=== PATIENT | male | born 1955 | race Caucasian/White ===

== ENCOUNTER 2021-02-18 00:11 | Inpatient (IN) ==
[2021-02-18] MEDS ORDERED: INSULIN GLARGINE 100 UNIT/ML SUBCUT ONE (01:40)
[2021-02-18 01:56] LABS: Basophils # 0.1 10*3/uL (0.0-0.2); Basophils % 0.4 % (0.0-0.8); Eosinophils # 0.2 10*3/uL (0.0-0.87); Eosinophils % 1.4 % (0.00-10.9); Hematocrit 37.6 VOL% (42.0-52.0); Hemoglobin 11.3 GM/DL (14.0-18.0); Immature Granulocytes % 2.1 %; Immature Granulocytes Absolute 0.27 #; Lymphocytes # 3.4 10*3/uL (1.4-4.0); Lymphocytes % 25.8 % (21.2-54.2); Mean Corpuscular HGB Conc 30.1 GM/DL (32-36); Mean Corpuscular Volume 97.4 FL (87-102); Mean Platelet Volume 10.3 FL (9.6-12.0); Monocytes % 8.7 % (1.7-12.7); Neutrophils % 61.6 % (38.7-73.9); Platelet Count 288 T/CUMM (130-400); Red Blood Count 3.86 MC/CUMM (3.8-5.5); Red Cell Distribution Width 17.2 % (9.3-17.3)
[2021-02-18 02:08] LABS: INR 1.6; PT Patient Result 16.8 SECS (10.5-12.0)
[2021-02-18 02:12] LABS: Albumin 3.1 G/DL (3.4-5.0); Bilirubin,Total 0.8 MG/DL (0.20-1.00); Calcium 8.4 MG/DL (8.5-10.1); Osmolality,Calculated 284.1 MOS/KG (273-304); Potassium 3.3 MMOL/L (3.5-5.1); Total Protein 6.3 G/DL (6.4-8.2)
[2021-02-18] MEDS ORDERED: POTASSIUM CHLORIDE 20 MEQ TABLET PO STA (02:14)
[2021-02-18] MEDS ORDERED: DILTIAZEM 50 MG/10 ML VIAL IV STA (02:28)
[2021-02-18] MEDS ORDERED: FUROSEMIDE 20 MG/2 ML VIAL IV STA (02:29)
[2021-02-18] MEDS ORDERED: PIPERACILLIN/TAZOBACTAM 3,375 MG in SODIUM CHLORIDE 0.9% 100 ML IV STA (02:30)
[2021-02-18] MEDS ORDERED: FUROSEMIDE 40 MG/4 ML VIAL ONE (02:54)
[2021-02-18] MEDS ORDERED: MAGNESIUM SULF RIDER 4 GM/100 ML PREMIX IV PRN (02:54)
[2021-02-18] MEDS ORDERED: MAGNESIUM SULF RIDER 2 GM/50 ML PREMIX IV PRN (02:54)
[2021-02-18] MEDS ORDERED: LOPERAMIDE 2 MG CAPSULE PO PRN (02:59)
[2021-02-18] MEDS ORDERED: MAGNESIUM HYDROXIDE SUSP 30 ML UDCUP PO PRN (02:59)
[2021-02-18] MEDS ORDERED: ALUMINUM/MAGNES/SIMETH MAX STR 30 ML UDCUP PO PRN (02:59)
[2021-02-18] MEDS ORDERED: GLUCAGON 1 MG VIAL IM PRN (04:43)
[2021-02-18] MEDS ORDERED: DEXTROSE 50% 25 GM/50 ML VIAL IV PRN (04:43)
[2021-02-18] MEDS: MOMETASONE/FORMOTEROL 200-5 INHALER 8.8 GM INH SCH ×2 (09:24→20:42)
[2021-02-18] MEDS: FUROSEMIDE 40 MG/4 ML VIAL IV SCH ×2 (09:25→15:35)
[2021-02-18] MEDS: OXcarbazepine 300 MG TABLET PO SCH (09:25)
[2021-02-18] MEDS: RIVAROXABAN 15 MG TABLET PO SCH (09:26)
[2021-02-18] MEDS: SERTRALINE 25 MG TABLET PO SCH (09:27)
[2021-02-18] MEDS: METOPROLOL TARTRATE 25 MG TABLET PO SCH ×2 (09:35→20:42)
[2021-02-18] MEDS: VANCOMYCIN INJ 1,500 MG in SODIUM CHLORIDE 0.9% 500 ML IV SCH ×2 (10:14→20:45)
[2021-02-18] MEDS: INSULIN REGULAR 100 UNIT/ML SUBCUT SCH ×4 (10:58→20:42)
[2021-02-18] MEDS: PIPERACILLIN/TAZOBACTAM 3,375 MG in SODIUM CHLORIDE 0.9% 100 ML IV SCH ×2 (14:27→23:48)
[2021-02-18] MEDS: metOLazone 2.5 MG TABLET PO SCH (17:32)
[2021-02-19 05:05] LABS: Basophils # 0.1 10*3/uL (0.0-0.2); Basophils % 0.6 % (0.0-0.8); Eosinophils # 0.2 10*3/uL (0.0-0.87); Eosinophils % 1.3 % (0.00-10.9); Immature Granulocytes % 2.3 %; Immature Granulocytes Absolute 0.29 #; Lymphocytes # 3.4 10*3/uL (1.4-4.0); Lymphocytes % 26.5 % (21.2-54.2); Mean Corpuscular HGB Conc 30.6 GM/DL (32-36); Mean Platelet Volume 10.3 FL (9.6-12.0); Monocytes % 8.6 % (1.7-12.7); Neutrophils % 60.7 % (38.7-73.9); Platelet Count 282 T/CUMM (130-400); Red Blood Count 3.79 MC/CUMM (3.8-5.5); Red Cell Distribution Width 17.2 % (9.3-17.3); White Blood Count 12.8 T/CUMM (4-12)
[2021-02-19 05:28] LABS: Albumin 2.9 G/DL (3.4-5.0); Bilirubin,Total 1.6 MG/DL (0.20-1.00); Calcium 9.2 MG/DL (8.5-10.1); Osmolality,Calculated 278.8 MOS/KG (273-304); Potassium 3.5 MMOL/L (3.5-5.1); Total Protein 6.4 G/DL (6.4-8.2)
[2021-02-19] MEDS: PIPERACILLIN/TAZOBACTAM 3,375 MG in SODIUM CHLORIDE 0.9% 100 ML IV SCH ×3 (06:21→23:14)
[2021-02-19] MEDS ORDERED: POTASSIUM CHLORIDE 20 MEQ TABLET PO PRN (08:04)
[2021-02-19 08:13] LABS: Eosinophils 2 % (0-10); Hypochromasia Slight; Lymphocytes 30 % (20-55); Microcytosis Slight; Platelet Estimate Adequate; Segmented Neutrophils 58 % (50-85); Total Cells Counted 100
[2021-02-19] MEDS: OXcarbazepine 300 MG TABLET PO SCH (08:45)
[2021-02-19] MEDS: SERTRALINE 25 MG TABLET PO SCH (08:45)
[2021-02-19] MEDS: metOLazone 2.5 MG TABLET PO SCH (08:46)
[2021-02-19] MEDS: RIVAROXABAN 15 MG TABLET PO SCH (08:46)
[2021-02-19] MEDS: FUROSEMIDE 40 MG/4 ML VIAL IV SCH ×2 (08:51→17:19)
[2021-02-19] MEDS: MOMETASONE/FORMOTEROL 200-5 INHALER 8.8 GM INH SCH ×2 (09:09→20:46)
[2021-02-19] MEDS ORDERED: DIGOXIN 0.5 MG/2 ML AMP IV ONE (09:50)
[2021-02-19] MEDS: VANCOMYCIN INJ 1,500 MG in SODIUM CHLORIDE 0.9% 500 ML IV SCH ×2 (10:40→20:46)
[2021-02-19] MEDS: ONDANSETRON 4 MG/2 ML VIAL IV PRN (11:24)
[2021-02-19] MEDS ORDERED: METOPROLOL TARTRATE 5 MG/5 ML VIAL IV ONE ×2 (12:11→12:13)
[2021-02-19] MEDS: INSULIN REGULAR 100 UNIT/ML SUBCUT SCH ×4 (12:20→20:47)
[2021-02-19] MEDS: DESITIN 4OZ/NYSTATIN 15 GRAM MIXTURE PASTE TOP SCH ×2 (12:56→20:46)
[2021-02-19] MEDS: methylPREDNISolone SOD SUC 40 MG/1 ML VIAL IV SCH (12:56)
[2021-02-19] MEDS: METOPROLOL TARTRATE 25 MG TABLET PO SCH (14:38)
[2021-02-19] MEDS ORDERED: METOPROLOL TARTRATE 25 MG TABLET PO ONE (14:45)
[2021-02-19] MEDS: METOPROLOL SUCCINATE XL 25 MG TABLET PO SCH (20:47)
[2021-02-19] MEDS ORDERED: METOPROLOL TARTRATE 25 MG TABLET PO SCH (21:00)
[2021-02-20] MEDS: methylPREDNISolone SOD SUC 40 MG/1 ML VIAL IV SCH ×2 (00:30→12:28)
[2021-02-20 05:51] LABS: Basophils # 0.1 10*3/uL (0.0-0.2); Basophils % 0.3 % (0.0-0.8); Hematocrit 36.8 VOL% (42.0-52.0); Hemoglobin 11.2 GM/DL (14.0-18.0); Immature Granulocytes % 2.1 %; Immature Granulocytes Absolute 0.32 #; Lymphocytes # 1.9 10*3/uL (1.4-4.0); Lymphocytes % 12.4 % (21.2-54.2); Mean Corpuscular HGB Conc 30.4 GM/DL (32-36); Mean Corpuscular Volume 96.3 FL (87-102); Mean Platelet Volume 10.5 FL (9.6-12.0); Monocytes % 2.1 % (1.7-12.7); Neutrophils % 83.1 % (38.7-73.9); Platelet Count 298 T/CUMM (130-400); Red Blood Count 3.82 MC/CUMM (3.8-5.5); Red Cell Distribution Width 16.7 % (9.3-17.3); White Blood Count 15.3 T/CUMM (4-12)
[2021-02-20] MEDS: PIPERACILLIN/TAZOBACTAM 3,375 MG in SODIUM CHLORIDE 0.9% 100 ML IV SCH ×2 (06:16→14:38)
[2021-02-20 06:26] LABS: Calcium 9.1 MG/DL (8.5-10.1); Osmolality,Calculated 285.5 MOS/KG (273-304); Potassium 3.9 MMOL/L (3.5-5.1)
[2021-02-20] MEDS: INSULIN REGULAR 100 UNIT/ML SUBCUT SCH ×4 (09:32→20:58)
[2021-02-20] MEDS: FUROSEMIDE 40 MG/4 ML VIAL IV SCH ×2 (09:33→17:04)
[2021-02-20] MEDS: SERTRALINE 25 MG TABLET PO SCH (09:33)
[2021-02-20] MEDS: metOLazone 2.5 MG TABLET PO SCH (09:33)
[2021-02-20] MEDS: RIVAROXABAN 15 MG TABLET PO SCH (09:34)
[2021-02-20] MEDS: METOPROLOL SUCCINATE XL 25 MG TABLET PO SCH (09:34)
[2021-02-20] MEDS: OXcarbazepine 300 MG TABLET PO SCH (09:35)
[2021-02-20] MEDS: DESITIN 4OZ/NYSTATIN 15 GRAM MIXTURE PASTE TOP SCH ×2 (09:39→20:58)
[2021-02-20] MEDS: MOMETASONE/FORMOTEROL 200-5 INHALER 8.8 GM INH SCH ×2 (09:39→20:57)
[2021-02-20] MEDS: VANCOMYCIN INJ 1,500 MG in SODIUM CHLORIDE 0.9% 500 ML IV SCH (09:44)
[2021-02-20] MEDS: DIGOXIN 0.25 MG TABLET PO SCH (12:27)
[2021-02-20] MEDS ORDERED: METOPROLOL SUCCINATE XL 25 MG TABLET PO ONE (12:34)
[2021-02-20] MEDS: DILTIAZEM INJ 100 MG in SODIUM CHLORIDE 0.9% 100 ML IV SCH ×2 (20:08→20:09)
[2021-02-20] MEDS: METOPROLOL SUCCINATE XL 50 MG TABLET PO SCH (20:57)
[2021-02-21] MEDS: PIPERACILLIN/TAZOBACTAM 3,375 MG in SODIUM CHLORIDE 0.9% 100 ML IV SCH ×4 (00:19→22:53)
[2021-02-21] MEDS: methylPREDNISolone SOD SUC 40 MG/1 ML VIAL IV SCH ×2 (00:47→11:43)
[2021-02-21] MEDS: ZALEPLON 5 MG CAPSULE PO PRN ×2 (00:58→20:36)
[2021-02-21] MEDS: ONDANSETRON 4 MG/2 ML VIAL IV PRN ×2 (00:59→20:38)
[2021-02-21 04:47] LABS: Basophils # 0.1 10*3/uL (0.0-0.2); Basophils % 0.3 % (0.0-0.8); Hematocrit 37.9 VOL% (42.0-52.0); Hemoglobin 11.6 GM/DL (14.0-18.0); Immature Granulocytes Absolute 0.48 #; Lymphocytes # 2.9 10*3/uL (1.4-4.0); Lymphocytes % 12.3 % (21.2-54.2); Mean Corpuscular HGB Conc 30.6 GM/DL (32-36); Mean Corpuscular Volume 97.2 FL (87-102); Mean Platelet Volume 10.2 FL (9.6-12.0); Monocytes % 3.6 % (1.7-12.7); NRBC # 0.02 10*3/uL; Neutrophils % 81.8 % (38.7-73.9); Platelet Count 324 T/CUMM (130-400); Red Cell Distribution Width 16.8 % (9.3-17.3); White Blood Count 23.5 T/CUMM (4-12)
[2021-02-21 05:25] LABS: Calcium 9.2 MG/DL (8.5-10.1); Osmolality,Calculated 285.5 MOS/KG (273-304); Potassium 4.1 MMOL/L (3.5-5.1)
[2021-02-21] MEDS: INSULIN REGULAR 100 UNIT/ML SUBCUT SCH ×4 (09:19→20:35)
[2021-02-21] MEDS: FUROSEMIDE 40 MG/4 ML VIAL IV SCH ×2 (09:19→17:04)
[2021-02-21] MEDS: RIVAROXABAN 15 MG TABLET PO SCH (09:20)
[2021-02-21] MEDS: SERTRALINE 25 MG TABLET PO SCH (09:20)
[2021-02-21] MEDS: OXcarbazepine 300 MG TABLET PO SCH (09:20)
[2021-02-21] MEDS: METOPROLOL SUCCINATE XL 50 MG TABLET PO SCH ×2 (09:20→20:36)
[2021-02-21] MEDS: MOMETASONE/FORMOTEROL 200-5 INHALER 8.8 GM INH SCH ×2 (09:21→20:35)
[2021-02-21] MEDS: metOLazone 2.5 MG TABLET PO SCH (09:21)
[2021-02-21] MEDS: DESITIN 4OZ/NYSTATIN 15 GRAM MIXTURE PASTE TOP SCH ×2 (09:21→20:35)
[2021-02-21] MEDS: DIGOXIN 0.25 MG TABLET PO SCH (13:41)
[2021-02-22 05:20] LABS: Basophils # 0.1 10*3/uL (0.0-0.2); Basophils % 0.3 % (0.0-0.8); Hematocrit 38.1 VOL% (42.0-52.0); Hemoglobin 11.6 GM/DL (14.0-18.0); Immature Granulocytes % 3.3 %; Immature Granulocytes Absolute 0.89 #; Lymphocytes # 3.8 10*3/uL (1.4-4.0); Lymphocytes % 14.3 % (21.2-54.2); Mean Corpuscular HGB Conc 30.4 GM/DL (32-36); Mean Corpuscular Volume 95.5 FL (87-102); Mean Platelet Volume 10.4 FL (9.6-12.0); Monocytes % 5.1 % (1.7-12.7); NRBC # 0.03 10*3/uL; Platelet Count 322 T/CUMM (130-400); Red Blood Count 3.99 MC/CUMM (3.8-5.5); Red Cell Distribution Width 16.6 % (9.3-17.3); White Blood Count 26.7 T/CUMM (4-12)
[2021-02-22 05:49] LABS: Hypochromasia 1+; Lymphocytes 20 % (20-55); Microcytosis 1+; Osmolality,Calculated 285.8 MOS/KG (273-304); Platelet Estimate Adequate; Potassium 3.6 MMOL/L (3.5-5.1); Segmented Neutrophils 72 % (50-85); Total Cells Counted 100
[2021-02-22] MEDS: PIPERACILLIN/TAZOBACTAM 3,375 MG in SODIUM CHLORIDE 0.9% 100 ML IV SCH ×2 (06:35→13:56)
[2021-02-22] MEDS: OXcarbazepine 300 MG TABLET PO SCH (09:35)
[2021-02-22] MEDS: RIVAROXABAN 15 MG TABLET PO SCH (09:35)
[2021-02-22] MEDS: SERTRALINE 25 MG TABLET PO SCH (09:37)
[2021-02-22] MEDS: METOPROLOL SUCCINATE XL 50 MG TABLET PO SCH ×2 (09:37→21:05)
[2021-02-22] MEDS: metOLazone 2.5 MG TABLET PO SCH (09:37)
[2021-02-22] MEDS: DESITIN 4OZ/NYSTATIN 15 GRAM MIXTURE PASTE TOP SCH ×2 (09:42→21:12)
[2021-02-22] MEDS: MOMETASONE/FORMOTEROL 200-5 INHALER 8.8 GM INH SCH ×2 (09:42→21:05)
[2021-02-22] MEDS: methylPREDNISolone SOD SUC 40 MG/1 ML VIAL IV SCH (09:44)
[2021-02-22] MEDS: INSULIN REGULAR 100 UNIT/ML SUBCUT SCH ×4 (09:44→21:05)
[2021-02-22] MEDS: FUROSEMIDE 40 MG/4 ML VIAL IV SCH (09:46)
[2021-02-22] MEDS: DIGOXIN 0.25 MG TABLET PO SCH (13:56)
[2021-02-22] MEDS ORDERED: SPIRONOLACTONE 25 MG TABLET PO ONE (14:51)
[2021-02-22] MEDS: MEROPENEM 500 MG in SODIUM CHLORIDE 0.9% 100 ML IV SCH ×2 (16:59→23:52)
[2021-02-23] MEDS: MEROPENEM 500 MG in SODIUM CHLORIDE 0.9% 100 ML IV SCH ×4 (05:39→22:31)
[2021-02-23 05:45] LABS: Basophils % 0.1 % (0.0-0.8); Eosinophils % 0.1 % (0.00-10.9); Hematocrit 42.6 VOL% (42.0-52.0); Hemoglobin 13.4 GM/DL (14.0-18.0); Immature Granulocytes % 4.2 %; Immature Granulocytes Absolute 1.16 #; Lymphocytes # 4.9 10*3/uL (1.4-4.0); Lymphocytes % 17.8 % (21.2-54.2); Mean Corpuscular HGB Conc 31.5 GM/DL (32-36); Mean Platelet Volume 10.1 FL (9.6-12.0); Monocytes % 7.2 % (1.7-12.7); NRBC # 0.02 10*3/uL; Neutrophils % 70.6 % (38.7-73.9); Platelet Count 349 T/CUMM (130-400); Red Blood Count 4.53 MC/CUMM (3.8-5.5); Red Cell Distribution Width 16.4 % (9.3-17.3); White Blood Count 27.5 T/CUMM (4-12)
[2021-02-23 05:58] LABS: Albumin 2.7 G/DL (3.4-5.0); Bilirubin,Total 0.7 MG/DL (0.20-1.00); Calcium 9.1 MG/DL (8.5-10.1); Osmolality,Calculated 282.7 MOS/KG (273-304); Potassium 4.5 MMOL/L (3.5-5.1); Total Protein 6.8 G/DL (6.4-8.2)
[2021-02-23 06:52] LABS: Lymphocytes 19 % (20-55); Platelet Estimate Normal; Segmented Neutrophils 75 % (50-85); Total Cells Counted 100
[2021-02-23] MEDS: metOLazone 2.5 MG TABLET PO SCH (08:55)
[2021-02-23] MEDS: METOPROLOL SUCCINATE XL 50 MG TABLET PO SCH ×2 (08:55→20:16)
[2021-02-23] MEDS: MOMETASONE/FORMOTEROL 200-5 INHALER 8.8 GM INH SCH ×2 (08:55→20:17)
[2021-02-23] MEDS: FUROSEMIDE 40 MG TABLET PO SCH (08:55)
[2021-02-23] MEDS: SERTRALINE 25 MG TABLET PO SCH (08:56)
[2021-02-23] MEDS: OXcarbazepine 300 MG TABLET PO SCH (08:56)
[2021-02-23] MEDS: RIVAROXABAN 15 MG TABLET PO SCH (08:56)
[2021-02-23] MEDS: INSULIN REGULAR 100 UNIT/ML SUBCUT SCH ×4 (08:57→20:36)
[2021-02-23] MEDS: methylPREDNISolone SOD SUC 40 MG/1 ML VIAL IV SCH (08:57)
[2021-02-23] MEDS: SPIRONOLACTONE 25 MG TABLET PO SCH (08:57)
[2021-02-23] MEDS: DIGOXIN 0.25 MG TABLET PO SCH (12:05)
[2021-02-23] MEDS: DESITIN 4OZ/NYSTATIN 15 GRAM MIXTURE PASTE TOP SCH ×2 (17:23→20:17)
[2021-02-23] MEDS: ZALEPLON 5 MG CAPSULE PO PRN (20:15)
[2021-02-24 04:35] LABS: Basophils % 0.1 % (0.0-0.8); Eosinophils % 0.1 % (0.00-10.9); Hematocrit 44.3 VOL% (42.0-52.0); Hemoglobin 13.7 GM/DL (14.0-18.0); Immature Granulocytes % 6.1 %; Immature Granulocytes Absolute 1.67 #; Lymphocytes # 4.8 10*3/uL (1.4-4.0); Lymphocytes % 17.6 % (21.2-54.2); Mean Corpuscular HGB Conc 30.9 GM/DL (32-36); Mean Corpuscular Volume 92.7 FL (87-102); Mean Platelet Volume 9.9 FL (9.6-12.0); Monocytes % 6.4 % (1.7-12.7); NRBC # 0.04 10*3/uL; Neutrophils % 69.7 % (38.7-73.9); Platelet Count 363 T/CUMM (130-400); Red Blood Count 4.78 MC/CUMM (3.8-5.5); Red Cell Distribution Width 16.4 % (9.3-17.3); White Blood Count 27.3 T/CUMM (4-12)
[2021-02-24] MEDS: MEROPENEM 500 MG in SODIUM CHLORIDE 0.9% 100 ML IV SCH ×4 (04:36→23:04)
[2021-02-24 05:05] LABS: Albumin 2.9 G/DL (3.4-5.0); Bilirubin,Total 0.5 MG/DL (0.20-1.00); Calcium 9.1 MG/DL (8.5-10.1); Osmolality,Calculated 283.7 MOS/KG (273-304); Potassium 4.2 MMOL/L (3.5-5.1); Total Protein 6.6 G/DL (6.4-8.2)
[2021-02-24 05:14] LABS: Calcium 9.2 MG/DL (8.5-10.1); Osmolality,Calculated 287.4 MOS/KG (273-304); Potassium 4.2 MMOL/L (3.5-5.1)
[2021-02-24 06:38] LABS: Anisocytosis 1+; Atypical Lymphocytes Few; Band Neutrophils 3 % (0-10); Burr Cells Few; Lymphocytes 20 % (20-55); Macrocytosis 1+; Myelocytes 3 %; Nucleated Red Blood Cells 1 (0-5); Platelet Estimate Normal; Segmented Neutrophils 65 % (50-85); Tear Drop Cells Few; Total Cells Counted 100
[2021-02-24] MEDS: INSULIN REGULAR 100 UNIT/ML SUBCUT SCH ×4 (07:54→21:59)
[2021-02-24] MEDS: MOMETASONE/FORMOTEROL 200-5 INHALER 8.8 GM INH SCH ×2 (08:29→22:00)
[2021-02-24] MEDS: SPIRONOLACTONE 25 MG TABLET PO SCH (08:30)
[2021-02-24] MEDS: RIVAROXABAN 15 MG TABLET PO SCH (08:30)
[2021-02-24] MEDS: FUROSEMIDE 40 MG TABLET PO SCH (08:30)
[2021-02-24] MEDS: METOPROLOL SUCCINATE XL 50 MG TABLET PO SCH ×2 (08:30→22:00)
[2021-02-24] MEDS: OXcarbazepine 300 MG TABLET PO SCH (08:31)
[2021-02-24] MEDS: PANTOPRAZOLE 40 MG TABLET PO SCH (08:31)
[2021-02-24] MEDS: SERTRALINE 25 MG TABLET PO SCH (08:31)
[2021-02-24] MEDS: methylPREDNISolone SOD SUC 40 MG/1 ML VIAL IV SCH (08:32)
[2021-02-24] MEDS: DESITIN 4OZ/NYSTATIN 15 GRAM MIXTURE PASTE TOP SCH ×2 (08:40→22:06)
[2021-02-24] MEDS: DIGOXIN 0.25 MG TABLET PO SCH (14:47)
[2021-02-25] MEDS: MEROPENEM 500 MG in SODIUM CHLORIDE 0.9% 100 ML IV SCH ×4 (04:00→23:21)
[2021-02-25 05:47] LABS: Basophils % 0.1 % (0.0-0.8); Eosinophils % 0.1 % (0.00-10.9); Hematocrit 45.3 VOL% (42.0-52.0); Hemoglobin 14.1 GM/DL (14.0-18.0); Immature Granulocytes % 7.7 %; Lymphocytes # 5.4 10*3/uL (1.4-4.0); Lymphocytes % 18.2 % (21.2-54.2); Mean Corpuscular HGB Conc 31.1 GM/DL (32-36); Mean Corpuscular Volume 94.6 FL (87-102); Mean Platelet Volume 10.2 FL (9.6-12.0); NRBC # 0.05 10*3/uL; Neutrophils % 66.9 % (38.7-73.9); Platelet Count 358 T/CUMM (130-400); Red Blood Count 4.79 MC/CUMM (3.8-5.5); Red Cell Distribution Width 16.3 % (9.3-17.3); White Blood Count 29.9 T/CUMM (4-12)
[2021-02-25 05:59] LABS: Lymphocytes 13 % (20-55); Segmented Neutrophils 83 % (50-85); Total Cells Counted 100
[2021-02-25 06:00] LABS: Hypochromasia 1+; Microcytosis 1+; Platelet Estimate Adequate
[2021-02-25 06:08] LABS: Calcium 9.2 MG/DL (8.5-10.1); Osmolality,Calculated 288.4 MOS/KG (273-304); Potassium 4.4 MMOL/L (3.5-5.1)
[2021-02-25] MEDS: INSULIN REGULAR 100 UNIT/ML SUBCUT SCH ×4 (09:09→20:41)
[2021-02-25] MEDS: SPIRONOLACTONE 25 MG TABLET PO SCH (09:10)
[2021-02-25] MEDS: FUROSEMIDE 40 MG TABLET PO SCH (09:10)
[2021-02-25] MEDS: METOPROLOL SUCCINATE XL 50 MG TABLET PO SCH ×2 (09:10→20:42)
[2021-02-25] MEDS: OXcarbazepine 300 MG TABLET PO SCH (09:10)
[2021-02-25] MEDS: methylPREDNISolone SOD SUC 40 MG/1 ML VIAL IV SCH (09:10)
[2021-02-25] MEDS: RIVAROXABAN 15 MG TABLET PO SCH (09:10)
[2021-02-25] MEDS: SERTRALINE 25 MG TABLET PO SCH (09:10)
[2021-02-25] MEDS: PANTOPRAZOLE 40 MG TABLET PO SCH (09:11)
[2021-02-25] MEDS: DESITIN 4OZ/NYSTATIN 15 GRAM MIXTURE PASTE TOP SCH ×2 (09:11→20:41)
[2021-02-25] MEDS: MOMETASONE/FORMOTEROL 200-5 INHALER 8.8 GM INH SCH ×2 (09:11→20:41)
[2021-02-25] MEDS ORDERED: TUBERCULIN SKIN TEST 0.1 ML SYRINGE INTRADERM ONE (11:14)
[2021-02-25] MEDS: DIGOXIN 0.25 MG TABLET PO SCH (12:37)
[2021-02-25] MEDS: ONDANSETRON 4 MG/2 ML VIAL IV PRN (21:44)
[2021-02-26 05:06] LABS: Basophils % 0.1 % (0.0-0.8); Eosinophils # 0.1 10*3/uL (0.0-0.87); Eosinophils % 0.2 % (0.00-10.9); Hematocrit 45.8 VOL% (42.0-52.0); Immature Granulocytes % 6.3 %; Immature Granulocytes Absolute 2.05 #; Lymphocytes # 5.9 10*3/uL (1.4-4.0); Lymphocytes % 18.2 % (21.2-54.2); Mean Corpuscular HGB Conc 30.6 GM/DL (32-36); Mean Platelet Volume 10.4 FL (9.6-12.0); Monocytes % 6.7 % (1.7-12.7); Neutrophils % 68.5 % (38.7-73.9); Platelet Count 360 T/CUMM (130-400); Red Blood Count 4.87 MC/CUMM (3.8-5.5); Red Cell Distribution Width 16.4 % (9.3-17.3); White Blood Count 32.7 T/CUMM (4-12)
[2021-02-26 05:33] LABS: Band Neutrophils 1 % (0-10); Eosinophils 1 % (0-10); Hypochromasia 1+; Lymphocytes 21 % (20-55); Microcytosis 1+; Platelet Estimate Adequate; Segmented Neutrophils 69 % (50-85); Total Cells Counted 100
[2021-02-26 05:39] LABS: Calcium 8.9 MG/DL (8.5-10.1); Osmolality,Calculated 287.5 MOS/KG (273-304); Potassium 4.6 MMOL/L (3.5-5.1)
[2021-02-26] MEDS: MEROPENEM 500 MG in SODIUM CHLORIDE 0.9% 100 ML IV SCH ×3 (06:20→16:21)
[2021-02-26] MEDS: INSULIN REGULAR 100 UNIT/ML SUBCUT SCH ×4 (08:25→20:52)
[2021-02-26] MEDS: FUROSEMIDE 40 MG TABLET PO SCH (09:38)
[2021-02-26] MEDS: METOPROLOL SUCCINATE XL 50 MG TABLET PO SCH (09:38)
[2021-02-26] MEDS: OXcarbazepine 300 MG TABLET PO SCH (09:38)
[2021-02-26] MEDS: PANTOPRAZOLE 40 MG TABLET PO SCH (09:39)
[2021-02-26] MEDS: DESITIN 4OZ/NYSTATIN 15 GRAM MIXTURE PASTE TOP SCH ×2 (09:39→20:52)
[2021-02-26] MEDS: SPIRONOLACTONE 25 MG TABLET PO SCH (09:39)
[2021-02-26] MEDS: MOMETASONE/FORMOTEROL 200-5 INHALER 8.8 GM INH SCH ×2 (09:39→20:52)
[2021-02-26] MEDS: RIVAROXABAN 15 MG TABLET PO SCH (09:39)
[2021-02-26] MEDS: SERTRALINE 25 MG TABLET PO SCH (09:39)
[2021-02-26] MEDS: DIGOXIN 0.25 MG TABLET PO SCH (12:18)
[2021-02-26] MEDS: LOSARTAN 25 MG TABLET PO SCH (12:18)
[2021-02-26] MEDS: SULFAMETHOX/TRIMETHOPRIM 800-160 MG TABLET PO SCH (20:47)
[2021-02-26] MEDS: METOPROLOL SUCCINATE XL 25 MG TABLET PO SCH (20:56)
[2021-02-27 05:36] LABS: Basophils % 0.1 % (0.0-0.8); Eosinophils # 0.4 10*3/uL (0.0-0.87); Eosinophils % 1.3 % (0.00-10.9); Hematocrit 44.3 VOL% (42.0-52.0); Hemoglobin 13.7 GM/DL (14.0-18.0); Immature Granulocytes Absolute 2.25 #; Lymphocytes # 7.3 10*3/uL (1.4-4.0); Lymphocytes % 25.9 % (21.2-54.2); Mean Corpuscular HGB Conc 30.9 GM/DL (32-36); Mean Corpuscular Volume 93.9 FL (87-102); Mean Platelet Volume 10.5 FL (9.6-12.0); Monocytes % 8.6 % (1.7-12.7); NRBC # 0.02 10*3/uL; Neutrophils % 56.1 % (38.7-73.9); Platelet Count 293 T/CUMM (130-400); Red Blood Count 4.72 MC/CUMM (3.8-5.5); Red Cell Distribution Width 16.3 % (9.3-17.3); White Blood Count 28.1 T/CUMM (4-12)
[2021-02-27 05:52] LABS: Eosinophils 2 % (0-10); Hypochromasia 1+; Lymphocytes 23 % (20-55); Microcytosis 1+; Platelet Estimate Adequate; Segmented Neutrophils 61 % (50-85); Total Cells Counted 100
[2021-02-27] MEDS: INSULIN REGULAR 100 UNIT/ML SUBCUT SCH ×4 (08:35→21:14)
[2021-02-27] MEDS: RIVAROXABAN 15 MG TABLET PO SCH (09:15)
[2021-02-27] MEDS: SPIRONOLACTONE 25 MG TABLET PO SCH (09:16)
[2021-02-27] MEDS: LOSARTAN 25 MG TABLET PO SCH (09:16)
[2021-02-27] MEDS: OXcarbazepine 300 MG TABLET PO SCH (09:16)
[2021-02-27] MEDS: METOPROLOL SUCCINATE XL 25 MG TABLET PO SCH ×2 (09:16→21:07)
[2021-02-27] MEDS: FUROSEMIDE 40 MG TABLET PO SCH (09:16)
[2021-02-27] MEDS: SERTRALINE 25 MG TABLET PO SCH (09:16)
[2021-02-27] MEDS: PANTOPRAZOLE 40 MG TABLET PO SCH (09:16)
[2021-02-27] MEDS: SULFAMETHOX/TRIMETHOPRIM 800-160 MG TABLET PO SCH ×2 (09:16→21:07)
[2021-02-27] MEDS: DESITIN 4OZ/NYSTATIN 15 GRAM MIXTURE PASTE TOP SCH ×2 (09:22→21:08)
[2021-02-27] MEDS: MOMETASONE/FORMOTEROL 200-5 INHALER 8.8 GM INH SCH ×2 (09:22→21:08)
[2021-02-27] MEDS: DIGOXIN 0.25 MG TABLET PO SCH (13:19)
[2021-02-27] MEDS: DIGOXIN 0.125 MG TABLET PO SCH (15:22)
[2021-02-27] MEDS: traZODone 50 MG TABLET PO PRN (22:03)
[2021-02-28 05:56] LABS: Basophils % 0.1 % (0.0-0.8); Eosinophils # 0.3 10*3/uL (0.0-0.87); Eosinophils % 1.4 % (0.00-10.9); Hematocrit 42.4 VOL% (42.0-52.0); Immature Granulocytes % 8.3 %; Immature Granulocytes Absolute 2.01 #; Lymphocytes # 6.8 10*3/uL (1.4-4.0); Mean Corpuscular HGB Conc 30.7 GM/DL (32-36); Mean Corpuscular Volume 93.6 FL (87-102); Mean Platelet Volume 10.1 FL (9.6-12.0); Monocytes % 8.1 % (1.7-12.7); Neutrophils % 54.1 % (38.7-73.9); Platelet Count 256 T/CUMM (130-400); Red Blood Count 4.53 MC/CUMM (3.8-5.5); Red Cell Distribution Width 16.4 % (9.3-17.3); White Blood Count 24.3 T/CUMM (4-12)
[2021-02-28 06:22] LABS: Eosinophils 2 % (0-10); Hypochromasia Slight; Lymphocytes 34 % (20-55); Microcytosis Slight; Platelet Estimate Adequate; Segmented Neutrophils 52 % (50-85); Total Cells Counted 100
[2021-02-28 06:47] LABS: Calcium 8.4 MG/DL (8.5-10.1); Osmolality,Calculated 279.7 MOS/KG (273-304)
[2021-02-28] MEDS: INSULIN REGULAR 100 UNIT/ML SUBCUT SCH ×4 (07:28→20:43)
[2021-02-28] MEDS: LOSARTAN 25 MG TABLET PO SCH (09:23)
[2021-02-28] MEDS: PANTOPRAZOLE 40 MG TABLET PO SCH (09:23)
[2021-02-28] MEDS: FUROSEMIDE 40 MG TABLET PO SCH (09:23)
[2021-02-28] MEDS: METOPROLOL SUCCINATE XL 25 MG TABLET PO SCH ×2 (09:23→21:35)
[2021-02-28] MEDS: OXcarbazepine 300 MG TABLET PO SCH (09:23)
[2021-02-28] MEDS: SULFAMETHOX/TRIMETHOPRIM 800-160 MG TABLET PO SCH ×2 (09:23→21:35)
[2021-02-28] MEDS: SERTRALINE 25 MG TABLET PO SCH (09:23)
[2021-02-28] MEDS: SPIRONOLACTONE 25 MG TABLET PO SCH (09:23)
[2021-02-28] MEDS: RIVAROXABAN 15 MG TABLET PO SCH (09:23)
[2021-02-28] MEDS: DESITIN 4OZ/NYSTATIN 15 GRAM MIXTURE PASTE TOP SCH ×2 (09:25→21:35)
[2021-02-28] MEDS: MOMETASONE/FORMOTEROL 200-5 INHALER 8.8 GM INH SCH ×2 (09:25→21:35)
[2021-02-28] MEDS: DIGOXIN 0.125 MG TABLET PO SCH (14:28)
[2021-03-01] MEDS: traZODone 50 MG TABLET PO PRN (01:19)
[2021-03-01] MEDS: SPIRONOLACTONE 25 MG TABLET PO SCH (10:52)
[2021-03-01] MEDS: PANTOPRAZOLE 40 MG TABLET PO SCH (10:52)
[2021-03-01] MEDS: FUROSEMIDE 40 MG TABLET PO SCH (10:52)
[2021-03-01] MEDS: METOPROLOL SUCCINATE XL 25 MG TABLET PO SCH (10:52)
[2021-03-01] MEDS: RIVAROXABAN 15 MG TABLET PO SCH (10:53)
[2021-03-01] MEDS: SULFAMETHOX/TRIMETHOPRIM 800-160 MG TABLET PO SCH (10:53)
[2021-03-01] MEDS: SERTRALINE 25 MG TABLET PO SCH (10:53)
[2021-03-01] MEDS: OXcarbazepine 300 MG TABLET PO SCH (10:53)
[2021-03-01] MEDS: DESITIN 4OZ/NYSTATIN 15 GRAM MIXTURE PASTE TOP SCH (10:54)
[2021-03-01] MEDS: MOMETASONE/FORMOTEROL 200-5 INHALER 8.8 GM INH SCH (10:54)
[2021-03-01] MEDS: INSULIN REGULAR 100 UNIT/ML SUBCUT SCH ×2 (10:55→14:51)
[2021-03-01] MEDS: LOSARTAN 25 MG TABLET PO SCH (10:56)
[2021-03-01] MEDS: DIGOXIN 0.125 MG TABLET PO SCH (14:50)
[2021-03-01 14:55] VITALS: BP 95/62
== END 2021-03-01 15:01 | disposition home or self-care (01) | DRG 291 ==
LOC: N.ED 00:11 → SUATTDRO 02:55 → N.EDINP 02:55 → N.TELEN 06:09
PROVIDERS: ADMIT Internal Medicine; ATTEND Internal Medicine Geriatric Medicine